=== PATIENT | male | born 1930 | race Caucasian/White ===

== ENCOUNTER 2017-02-18 19:09 | Inpatient (IN) | payer MEDICARE, BC ==
[~2017-02-18] VITALS: Ht 175.3 cm; Wt 93.3 kg
[~2017-02-18 19:09] MED LIST: ACTOS30 MG PO; ALEVE220 MG PO; ALLEGRA 180MG180 MG PO; ANTIVERT 25MG25 MG PO; ASPIRIN 32325 MG/TA1 PO; ASPIRIN 32325 MG/TAB PO; ASPIRIN 81M81 MG/TA2 PO; ASTELIN NASAL S34 ML NS; ASTELIN137 MCG/Ac NS; BACTRIM DS 8001 TAB PO; BENICAR 20MG TA20 MG PO; BENICAR40 MG PO; BIAXIN 500MG T500 MG PO; BIAXIN FILMTAB500 MG PO; DILAUDID 2MG TAB2 MG PO; FEXOFENADINE180 MG PO; FISH OIL CONCEN1 SGL PO; FLOVENT 44MCG I13 GM IH; FLOVENT0.044 MG/A IH; FOLIC ACID0.8 MG PO; GABAPENTIN300 MG PO; GLUCOPHAGE1000 MG PO; IRON325 M1 PO; LIORESAL 1010 MG/TAB PO; LIPITOR 40MG TA40 MG PO; LIPITOR40 MG PO; LOPRESSOR 225 MG/TAB PO; METFORMIN1000 MG PO; METOPROLOL SUCC25 MG PO; MORPHINE 1515 MG/TAB PO; MUCINEX DM 60 M1 TER PO; NITROSTAT0.4 MG/TAB SL; NORCO 325 MG-51 TAB PO; PLAVIX 75MG TAB75 MG PO; PRILOSEC 20MG20 MG PO; PROVENTIL0.09 MG/A1 IH; RT SPIRIVA18 MCG IH; SINGULAIR 110 MG/TAB PO; SINGULAIR10 MG PO; SPIRIVA HANDIH18 MCG IH; SUPREX FERROUS325 MG PO; TOPROL XL 25MG25 MG PO; TRILIPIX45 MG PO; UNABLE; VITAMIN B121000 MC2 SL; VITAMIN D32000 IU PO
[2017-02-18 20:04] LABS: BASO # 0.1 (0.0-0.2); BASO % 0.8 % (0.0-2.0); EOS # 0.5 (0.0-0.7); EOS % 4.6 % (0-4.0); GRAN # 6.2 (1.4-6.5); GRAN % 60.6 % (42.2-75.2); HEMOGLOBIN 14.4 g/dl (13.5-18.0); LYMPH # 2.2 (1.2-3.4); LYMPH % 21.4 % (20.0-51.0); MEAN CELL VOLUME 90 fl (80.0-100.0); MEAN CORPUSCULAR HEMOGLOBIN 31 pg (27.0-31.0); MEAN CORPUSCULAR HGB CONC 34 g/dl (33.0-37.0); MEAN PLATELET VOLUME 10.7 fl (7.4-10.4); MONO # 1.3 (0.1-0.6); MONO % 12.3 % (1.7-9.3); PLATELET COUNT 299 K/mm3 (130-400); RED BLOOD COUNT 4.65 M/mm3 (4.20-5.60); WHITE BLOOD COUNT 10.2 K/mm3 (4.8-10.8)
[2017-02-18 20:07] LABS: INR 1.1 (0.8-3.0); PROTHROMBIN TIME 12.5 SECONDS (9.7-12.8)
[2017-02-18 20:10] LABS: PARTIAL THROMBOPLASTIN TIME 30.8 SECONDS (26.0-37.0)
[2017-02-18 20:12] LABS: ADJUSTED CALCIUM 9.5 mg/dL (8.4-10.2); ALANINE AMINOTRANSFERASE 35 U/L (21-72); ALBUMIN 4.3 gm/dL (3.5-5.0); ALKALINE PHOSPHATASE 98 U/L (50-136); ANION GAP 12 mmol/L (7-16); BILIRUBIN,TOTAL 0.5 mg/dL (0.0-1.0); BLOOD UREA NITROGEN 25 mg/dL (9-20); CALCIUM 9.7 mg/dL (8.4-10.2); CARBON DIOXIDE 22 mmol/L (22-30); CHLORIDE 104 mmol/L (98-107); CREATININE, serum 1.14 mg/dL (0.66-1.25); GLUCOSE 138 mg/dL (74-106); POTASSIUM 4.5 mmol/L (3.4-5.0); SODIUM 137 mmol/L (137-145); TOTAL PROTEIN 7.4 gm/dL (6.4-8.2)
[2017-02-18 20:32] LABS: TROPONIN-I < 0.012 ng/mL (0.000-0.034)
[2017-02-18 21:21] LABS: ERYTHROCYTE SEDIMENTATION RATE 20 mm/hr (0-30)
[2017-02-18 21:24] LABS: C-REACTIVE PROTEIN < 0.5 mg/dL (0.0-0.9)
[2017-02-18 22:00] LABS: COLLECTION METHOD CLEAN CATCH
[2017-02-18 22:10] LABS: MUCOUS Present /lpf; PH 5 (5-8); SQUAMOUS EPITHELIAL 0-2 /hpf; URINE APPEARANCE Clear; URINE BACTERIA None Seen /hpf; URINE BILIRUBIN Negative (NEGATIVE); URINE BLOOD Negative (NEGATIVE); URINE COLOR Yellow; URINE GLUCOSE Negative (NEGATIVE); URINE KETONE Negative (NEGATIVE); URINE LEUKOCYTE ESTERASE Negative (NEGATIVE); URINE PROTEIN(semi-quant) Negative (NEGATIVE); URINE RBC 0-2 /hpf
[2017-02-18 23:47] VITALS: BP 128/75; PULSE 72; TEMP 97.4
[2017-02-18 23:50] VITALS: BP 128/75; PULSE 72; TEMP 97.4
[2017-02-19 05:11] VITALS: BP 145/65; PULSE 71; TEMP 97.9
[2017-02-19 07:06] LABS: CALCIUM 9.1 mg/dL (8.4-10.2); CHOLESTEROL RISK RATIO 4.1; CREATININE, serum 1.03 mg/dL (0.66-1.25)
[2017-02-19 07:08] LABS: BASO # 0.1 (0.0-0.2); EOS # 0.6 (0.0-0.7); EOS % 6.6 % (0-4.0); GRAN # 4.7 (1.4-6.5); GRAN % 53.9 % (42.2-75.2); HEMATOCRIT 38.1 % (42.0-52.0); HEMOGLOBIN 12.9 g/dl (13.5-18.0); LYMPH # 2.3 (1.2-3.4); LYMPH % 26.7 % (20.0-51.0); MEAN CELL VOLUME 90 fl (80.0-100.0); MEAN CORPUSCULAR HEMOGLOBIN 31 pg (27.0-31.0); MEAN CORPUSCULAR HGB CONC 34 g/dl (33.0-37.0); MEAN PLATELET VOLUME 10.8 fl (7.4-10.4); MONO % 11.3 % (1.7-9.3); PLATELET COUNT 288 K/mm3 (130-400); RED BLOOD COUNT 4.22 M/mm3 (4.20-5.60); WHITE BLOOD COUNT 8.8 K/mm3 (4.8-10.8)
[2017-02-19 07:30] VITALS: BP 128/64; PULSE 79; TEMP 97.6
[2017-02-19 12:30] VITALS: BP 150/70; PULSE 69; TEMP 97.8
[2017-02-19 14:58] LABS: TSH w REFLEX 1.58 uIU/mL (0.465-4.680)
[2017-02-19 15:59] VITALS: BP 172/75; PULSE 67; TEMP 97.9
[2017-02-19 20:25] VITALS: BP 145/71; PULSE 64; TEMP 98.3
[2017-02-19 22:19] VITALS: BP 153/86; PULSE 61
[2017-02-20] VITALS (7 sets, daily range): BP systolic 100–147; BP diastolic 53–77; PULSE 63–71; TEMP 97.3–97.8
[2017-02-20 08:21] LABS: HEMATOCRIT 38.9 % (42.0-52.0); HEMOGLOBIN 13.2 g/dl (13.5-18.0)
[2017-02-20 08:35] LABS: CALCIUM 9.2 mg/dL (8.4-10.2); CREATININE, serum 1.09 mg/dL (0.66-1.25)
[2017-02-20 09:51] LABS: HEMATOCRIT 38.4 % (42.0-52.0); HEMOGLOBIN 13.1 g/dl (13.5-18.0); MEAN CELL VOLUME 91 fl (80.0-100.0); MEAN CORPUSCULAR HEMOGLOBIN 31 pg (27.0-31.0); MEAN CORPUSCULAR HGB CONC 34 g/dl (33.0-37.0); MEAN PLATELET VOLUME 10.6 fl (7.4-10.4); PLATELET COUNT 291 K/mm3 (130-400); RED BLOOD COUNT 4.22 M/mm3 (4.20-5.60); WHITE BLOOD COUNT 8.3 K/mm3 (4.8-10.8)
[2017-02-20 09:57] LABS: INR 1.2 (0.8-3.0); PROTHROMBIN TIME 13.4 SECONDS (9.7-12.8)
[2017-02-20 10:00] LABS: PARTIAL THROMBOPLASTIN TIME 31.9 SECONDS (26.0-37.0)
[2017-02-21] VITALS (12 sets, daily range): BP systolic 100–132; BP diastolic 39–97; PULSE 56–84; TEMP 97.5–98.5
[2017-02-21 07:27] LABS: BASO # 0.1 (0.0-0.2); BASO % 0.6 % (0.0-2.0); EOS # 0.6 (0.0-0.7); EOS % 5.4 % (0-4.0); GRAN # 6.3 (1.4-6.5); GRAN % 60.7 % (42.2-75.2); HEMOGLOBIN 13.3 g/dl (13.5-18.0); LYMPH # 2.2 (1.2-3.4); LYMPH % 21.5 % (20.0-51.0); MEAN CELL VOLUME 91 fl (80.0-100.0); MEAN CORPUSCULAR HEMOGLOBIN 31 pg (27.0-31.0); MEAN CORPUSCULAR HGB CONC 34 g/dl (33.0-37.0); MEAN PLATELET VOLUME 11.2 fl (7.4-10.4); MONO # 1.1 (0.1-0.6); MONO % 11.1 % (1.7-9.3); PLATELET COUNT 284 K/mm3 (130-400); RED BLOOD COUNT 4.31 M/mm3 (4.20-5.60); WHITE BLOOD COUNT 10.3 K/mm3 (4.8-10.8)
[2017-02-22 00:13] VITALS: BP 104/53; PULSE 74; TEMP 98.6
[2017-02-22 03:45] VITALS: BP 119/57; PULSE 72; TEMP 98.2
[2017-02-22 08:11] VITALS: BP 99/49; PULSE 71
[2017-02-22 09:10] VITALS: BP 120/64
[2017-02-22] MEDS ORDERED: LIPITOR 80MG80 MG PO (10:05)
[2017-02-22] MEDS ORDERED: ELIQUIS 5MG PO (10:05)
[2017-02-22] MEDS ORDERED: B-121000 MCG PO (10:06)
[2017-02-22 11:33] VITALS: BP 112/62; PULSE 70
== END 2017-02-22 13:15 | DRG 41 ==
LOC: COL.ER 19:09 → MEDICAL 21:17
PROVIDERS: Emergency Medicine; Nurse Practitioner; Physician Assistant; Psychiatry & Neurology Neurology
PROC: 0JH602Z Insertion of Monitoring Device into Chest Subcutaneous Tissue and Fascia, Open Approach (ICD-10-PCS; principal; 2017-02-22)
DX: I63.9 Cerebral infarction, unspecified (principal); G81.94 Hemiplegia, unspecified affecting left nondominant side; R29.810 Facial weakness; E11.42 Type 2 diabetes mellitus with diabetic polyneuropathy; I10 Essential (primary) hypertension; R29.703 NIHSS score 3; I25.10 Atherosclerotic heart disease of native coronary artery without angina pectoris; J44.9 Chronic obstructive pulmonary disease, unspecified; Z95.5 Presence of coronary angioplasty implant and graft
CPT/HCPCS: 99223-AI; 99232-AI; 99239; A9585; C1764; G9654; J1644; J1650; J1815; J2704; J7030

== ENCOUNTER 2017-02-22 13:10 | Inpatient (IN) | payer MEDICARE, BC ==
[~2017-02-22] VITALS: Ht 177.8 cm; Wt 93.2 kg
[~2017-02-22 13:10] MED LIST changes: +B-121000 MCG PO; +ELIQUIS 5MG PO; +LIPITOR 80MG80 MG PO
[2017-02-22 17:32] VITALS: BP 126/48; PULSE 75; TEMP 98.2
[2017-02-22 17:34] VITALS: BP 126/48; PULSE 75; TEMP 98.2
[2017-02-23 05:47] VITALS: BP 116/48; PULSE 72; TEMP 98.2
[2017-02-23 15:58] VITALS: BP 143/56; PULSE 65; TEMP 97.7
[2017-02-24 04:45] VITALS: BP 147/64; PULSE 64; TEMP 98.3
[2017-02-24 16:33] VITALS: BP 150/77; PULSE 70; TEMP 97.4
[2017-02-25 05:26] VITALS: BP 136/69; PULSE 67; TEMP 97.7
[2017-02-25 16:19] VITALS: BP 156/79; PULSE 73; TEMP 97.4
[2017-02-25 17:24] VITALS: BP 129/63; PULSE 71; TEMP 97.4
[2017-02-26 05:22] VITALS: BP 149/66; PULSE 78; TEMP 98.2
[2017-02-26 18:30] VITALS: BP 119/53; PULSE 72; TEMP 97.6
[2017-02-27 03:29] VITALS: BP 119/72; PULSE 84; TEMP 97.6
[2017-02-27 16:38] VITALS: BP 117/45; PULSE 80; TEMP 97.8
[2017-02-28 04:43] VITALS: BP 122/47; PULSE 83; TEMP 97.9
[2017-02-28 18:29] VITALS: BP 110/57; PULSE 77; TEMP 98.4
[2017-03-01 03:17] VITALS: BP 125/60; PULSE 74; TEMP 98.4
[2017-03-01 16:06] VITALS: BP 124/46; PULSE 67; TEMP 97.6
[2017-03-02 05:40] VITALS: BP 114/70; PULSE 72; TEMP 98.4
[2017-03-02 17:01] VITALS: BP 102/58; PULSE 74; TEMP 97.9
[2017-03-03 06:30] VITALS: BP 110/62; PULSE 76; TEMP 98.2
[2017-03-03 14:07] VITALS: BP 115/54; PULSE 71; TEMP 97.6
[2017-03-04 06:17] VITALS: BP 138/47; PULSE 64; TEMP 97.8
[2017-03-04 06:18] VITALS: BP 148/73; PULSE 62; TEMP 96
[2017-03-04 15:38] VITALS: BP 115/69; PULSE 76; TEMP 97.8
[2017-03-05 06:17] VITALS: BP 138/58; PULSE 80; TEMP 98.7
[2017-03-05 07:09] LABS: ADD PATHOLOGY DIFF REVIEW NO
[2017-03-05 07:11] LABS: HEMATOCRIT 39.3 % (42.0-52.0); HEMOGLOBIN 13.3 g/dl (13.5-18.0); MEAN CELL VOLUME 92 fl (80.0-100.0); MEAN CORPUSCULAR HEMOGLOBIN 31 pg (27.0-31.0); MEAN CORPUSCULAR HGB CONC 34 g/dl (33.0-37.0); MEAN PLATELET VOLUME 10.5 fl (7.4-10.4); PLATELET COUNT 355 K/mm3 (130-400); RED BLOOD COUNT 4.29 M/mm3 (4.20-5.60); WHITE BLOOD COUNT 13.1 K/mm3 (4.8-10.8)
[2017-03-05 07:22] LABS: ADJUSTED CALCIUM 9.5 mg/dL (8.4-10.2); ALBUMIN 3.6 gm/dL (3.5-5.0); CALCIUM 9.2 mg/dL (8.4-10.2); CREATININE, serum 1.25 mg/dL (0.66-1.25); MAGNESIUM 1.4 mg/dL (1.6-2.3); POTASSIUM 4.8 mmol/L (3.4-5.0); TOTAL PROTEIN 6.6 gm/dL (6.4-8.2)
[2017-03-05 08:34] LABS: BAND 23 % (0-10); EOSINOPHIL 2 % (0-4); LYMPHOCYTE 22 % (20.0-51.0); MYELOCYTE 1 % (0-0); NEUTROPHILS 52 % (42.0-75.2); PLATELET ESTIMATE INCREASED (NORMAL); TOTAL CELLS COUNTED 100
[2017-03-05 15:25] VITALS: BP 104/33; PULSE 72; TEMP 98.4
[2017-03-06 05:32] VITALS: BP 138/54; PULSE 69; TEMP 98.3
[2017-03-06 16:06] VITALS: BP 128/57; PULSE 78; TEMP 97.7
[2017-03-07 04:07] VITALS: BP 126/54; PULSE 73; TEMP 97.7
[2017-03-07 17:32] VITALS: BP 103/52; PULSE 72; TEMP 98
[2017-03-08 04:40] VITALS: BP 94/61; PULSE 55; TEMP 97
[2017-03-08 07:51] LABS: CALCIUM 9.3 mg/dL (8.4-10.2); CREATININE, serum 1.61 mg/dL (0.66-1.25); MAGNESIUM 2.1 mg/dL (1.6-2.3); POTASSIUM 4.4 mmol/L (3.4-5.0)
[2017-03-08 14:39] LABS: ADD PATHOLOGY DIFF REVIEW NO
[2017-03-08 14:44] LABS: HEMATOCRIT 39.1 % (42.0-52.0); HEMOGLOBIN 13.3 g/dl (13.5-18.0); MEAN CELL VOLUME 92 fl (80.0-100.0); MEAN CORPUSCULAR HEMOGLOBIN 31 pg (27.0-31.0); MEAN CORPUSCULAR HGB CONC 34 g/dl (33.0-37.0); MEAN PLATELET VOLUME 10.2 fl (7.4-10.4); PLATELET COUNT 325 K/mm3 (130-400); RED BLOOD COUNT 4.27 M/mm3 (4.20-5.60); WHITE BLOOD COUNT 11.8 K/mm3 (4.8-10.8)
[2017-03-08 15:00] LABS: BAND 2 % (0-10); EOSINOPHIL 5 % (0-4); LYMPHOCYTE 20 % (20.0-51.0); NEUTROPHILS 68 % (42.0-75.2); TOTAL CELLS COUNTED 100
[2017-03-08 15:01] LABS: PLATELET ESTIMATE NORMAL (NORMAL)
[2017-03-08 17:15] VITALS: BP 118/61; PULSE 66; TEMP 97.5
[2017-03-09 06:30] VITALS: BP 134/71; PULSE 70; TEMP 97.7
[2017-03-09 08:29] LABS: CREATININE, serum 1.25 mg/dL (0.66-1.25); MAGNESIUM 1.8 mg/dL (1.6-2.3); POTASSIUM 4.4 mmol/L (3.4-5.0)
[2017-03-09 15:51] VITALS: BP 121/56; PULSE 65; TEMP 97.3
[2017-03-10 03:40] VITALS: BP 116/64; PULSE 60; TEMP 98.6
[2017-03-10 16:08] VITALS: BP 127/63; PULSE 64; TEMP 97.4
[2017-03-11 04:45] VITALS: BP 116/66; PULSE 51; TEMP 98.5
[2017-03-11 06:21] LABS: CALCIUM 9.1 mg/dL (8.4-10.2); CREATININE, serum 1.04 mg/dL (0.66-1.25); MAGNESIUM 1.5 mg/dL (1.6-2.3); POTASSIUM 4.4 mmol/L (3.4-5.0)
[2017-03-11 18:09] VITALS: BP 124/64; PULSE 68; TEMP 97.8
[2017-03-12 05:49] VITALS: BP 132/60; PULSE 53; TEMP 97.4
[2017-03-12 18:07] VITALS: BP 138/64; PULSE 62; TEMP 98.5
[2017-03-13 05:38] VITALS: BP 110/76; PULSE 64; TEMP 98.2
[2017-03-13 06:08] LABS: CALCIUM 9.2 mg/dL (8.4-10.2); CREATININE, serum 1.11 mg/dL (0.66-1.25); MAGNESIUM 1.8 mg/dL (1.6-2.3); POTASSIUM 4.4 mmol/L (3.4-5.0)
[2017-03-13] MEDS ORDERED: PLAVIX 75MG TAB75 MG PO (06:58)
[2017-03-13] MEDS ORDERED: TYLENOL 325MG325 MG PO (06:58)
[2017-03-13] MEDS ORDERED: MAG-OX 400400 MG/TAB PO (06:59)
[2017-03-13] MEDS ORDERED: IMODIUM 2MG CAPS2 MG PO (07:00)
[2017-03-13] MEDS ORDERED: ZOFRAN ODT4 MG PO (07:00)
[2017-03-13] MEDS ORDERED: DESITIN DIAPER120 GM TP (07:01)
[2017-03-13] MEDS ORDERED: NOVLOG SQ (07:01)
[2017-03-13 11:38] VITALS: BP 110/76; PULSE 64; TEMP 98.2
== END 2017-03-13 13:30 | DRG 57 ==
PROVIDERS: Internal Medicine
DX: I69.354 Hemiplegia and hemiparesis following cerebral infarction affecting left non-dominant side (principal); N17.9 Acute kidney failure, unspecified; I10 Essential (primary) hypertension; E11.9 Type 2 diabetes mellitus without complications; J44.9 Chronic obstructive pulmonary disease, unspecified; Z95.5 Presence of coronary angioplasty implant and graft; G89.29 Other chronic pain; R19.7 Diarrhea, unspecified
CPT/HCPCS: 99222-AI; 99232-AI; 99233-AI; 99239; J1815; J3475; J7030

== ENCOUNTER → 2017-03-28 | Outpatient (CLI) | payer MEDICARE, BC ==
[~2017-03-28] MED LIST changes: +DESITIN DIAPER120 GM TP; +IMODIUM 2MG CAPS2 MG PO; +MAG-OX 400400 MG/TAB PO; +NOVLOG SQ; +TYLENOL 325MG325 MG PO; +ZOFRAN ODT4 MG PO
== END ==
LOC: COL.RAD 11:23
DX: I65.22 Occlusion and stenosis of left carotid artery (principal); Z86.73 Personal history of transient ischemic attack (TIA), and cerebral infarction without residual deficits
CPT/HCPCS: J7050; Q9967